=== PATIENT | female | born 1990 | race Caucasian/White ===

== ENCOUNTER 2017-02-15 07:15 | Inpatient (IN) | payer BC ==
[2017-02-15] MEDS ORDERED: Misoprostol 50 MCG (1/2 of 100 MCG) Tab VAG ONE (08:22)
[2017-02-15] MEDS ORDERED: Sodium Chloride 0.9% 10 ML Syringe FLUSH PRN ×2 (08:23→10:56)
[2017-02-15] MEDS ORDERED: Acetaminophen 325 MG Tab PO PRN ×2 (08:23→10:47)
[2017-02-15] MEDS ORDERED: Misoprostol 400 MCG (4 X 100 MCG TAB) RECTAL PRN ×2 (08:28→10:49)
[2017-02-15] MEDS ORDERED: Ondansetron 4 MG/2 ML SDV IV PRN ×2 (08:28→10:55)
[2017-02-15] MEDS ORDERED: Methylergonovine 0.2 MG/1 ML Amp IM PRN ×2 (08:28→10:49)
[2017-02-15] MEDS ORDERED: Nalbuphine 20 MG/1 ML Amp IM PRN ×2 (08:28→10:54)
[2017-02-15] MEDS ORDERED: Lidocaine 1% 30 ML SDV INJECT PRN ×2 (08:28→10:49)
[2017-02-15] MEDS ORDERED: Carboprost Tromethamine 250 MCG/1 ML Amp IM PRN ×2 (08:28→10:47)
[2017-02-15] MEDS ORDERED: Lactated Ringers 1,000 ML IV SCH ×2 (08:30)
[2017-02-15] MEDS ORDERED: Oxytocin/Normal Saline 30 UNIT/500 ML BAG IV SCH (08:30)
--- NOTE | 2017-02-15 09:34 | US ---
Clinical history: 26-year-old gravid female uncertain presentation. Interpretation: Enlarged uterus with "active" live ( heart rate 149 bpm) intrauterine gestation in a longitudina l lie and.... cephalic presentation i.e. vertex (head is presenting).
[2017-02-15] MEDS: Misoprostol 25 MCG (1/4 of 100 MCG) Tab VAG PRN ×2 (10:57→15:16)
[2017-02-15] MEDS ORDERED: Misoprostol 25 MCG (1/4 of 100 MCG) Tab VAG PRN (13:00)
[2017-02-15] MEDS ORDERED: hydrOXYzine HCl 25 MG Tab PO PRN (13:24)
[2017-02-15] MEDS ORDERED: CAFFEINE PO PRN (13:25)
[2017-02-15] MEDS ORDERED: [UNRECOGNIZED DRUG - OTHER] PO PRN (13:25)
[2017-02-15] MEDS ORDERED: ACETAMINOPHEN PO PRN (13:25)
[2017-02-15] MEDS: Lactated Ringers 1,000 ML IV SCH ×2 (14:45→18:42)
[2017-02-15] MEDS ORDERED: hydrOXYzine HCl 25 MG Tab PO ONE (21:18)
[2017-02-15] MEDS: Oxytocin/Normal Saline 30 UNIT/500 ML BAG IV SCH (22:28)
[2017-02-16] MEDS: Lactated Ringers 1,000 ML IV SCH ×4 (04:04→15:30)
--- NOTE | 2017-02-16 11:01 | PN ---
DATE: 02/16/2017 SUBJECTIVE: Hospital day #2, undergoing induction of labor for intrahepatic cholestasis of . Initiated with 2 doses of Cytotec and then contractions were too frequent to continue with Cytotec, so she was switched over to Pitocin and has had that running throughout the night. Reports that she is feeling the contractions that are getting stronger, but she is still tolerating very well. movement has been good. She has not developed any other new signs, symptoms, or problems. OBJECTIVE: General: Patient appears comfortable. She has just finished her breakfast. Vital Signs: Temperature is 98.0, pulse is 79, blood pressure 111/65. Heart: Regular without any obvious murmur. Lungs: Clear bilaterally. Genitourinary: Cervix is a good 3 cm dilated, 75% effaced, remains posterior and baby is ballotable with bag of water intact. Extremities: No edema, erythema, or tenderness noted. ASSESSMENT: 1. 2, para 1-0-0-1, currently at 37 and 1/7 weeks' gestation with intrahepatic cholestasis of . 2. Induction of labor, making slow but overall steady progress. PLAN: At this time, continue with the Pitocin to hopefully get that head well affixed against the cervix before artificial rupture of membranes can be performed. Hoping that after that, labor will progress more rapidly and I can attend to her delivery. However, patient understands I will likely need to transfer her care over to Dr. Robbins after 500 pm today. Her questions have been answered at this time. [facility] /[id number] ABDIEL
--- NOTE | 2017-02-16 14:07 | PN ---
DATE: 02/16/2017 SUBJECTIVE: Hospital day #2, inducing for intrahepatic cholestasis of . Baby movement has been good. Mother denies any specific complaints. Reporting she continues to feel contractions that they were same as they were this morning, and denies any new pelvic pressure. She has not had any vaginal bleeding and not developed any symptoms of preeclampsia. Reports with her last delivery, she came in and was not really having any thing going on, but when accidental or non-intended artificial rupture membranes was performed, she only had 6 hours of labor and then had a successful vaginal delivery, so she is anticipating that AROM will help this time as well. OBJECTIVE: Vital Signs: Have remained stable, and she is afebrile. Cervical exam: 3+ cm dilated, 80% effaced, softer consistency than on my last exam. Bag of water present and intact, ruptured with Amniohook and good return of clear fluid in copious amounts. Verified that the head came down and stayed applied to the cervix before and after procedure was performed. ASSESSMENT: 1. A 37 and 1/7 weeks 2, para 1-0-0-1, being induced for ICP. 2. Anemia of . 3. Status post artificial rupture of membranes. PLAN: Anticipate continued active labor management with vaginal delivery. Dr. Robbins is aware that the patient is here, and I will continue to watch her for the next 4 hours, and then he will take over at that time. [facility] /[id number]
[2017-02-16] MEDS ORDERED: fentaNYL 100 MCG/2 ML SDV ONE (15:10)
--- NOTE | 2017-02-16 15:34 | PCM.SN ---
- Free Text/Narrative Note: Intrathecal. Sitting position, sterile prep and drape. 1 % lidocaine w bicarb for skinwheal to L2 L3 interspace. Introducer, 24 Ga pencan x 1. Pos CSF, neg Heme, neg parasthesia. 1:1000 epi wash, 15 mcg PF sufenta, 35 mcg PF fentanyl, 0.4 ml PF NS, 6 mg of 0.75% PF bupivacaine injected after CSF aspiration. Pt to L lateral side. Procedure time 1515 to 1540
[2017-02-16] MEDS ORDERED: Benzocaine/Menthol 20%-0.5% Spray 56 GM Canister TOP PRN (17:25)
[2017-02-16] MEDS ORDERED: Simethicone 80 MG Tab.Chew PO PRN (17:25)
[2017-02-16] MEDS ORDERED: Mineral Oil/Petrolatum/Phenylephrine/Shark Liver Oil Oint 57 GM Tube RECTAL PRN (17:29)
[2017-02-16] MEDS ORDERED: Hydrocortisone 1% Crm 30 GM Tube TOP PRN (17:46)
[2017-02-16] MEDS: Oxytocin/Normal Saline 30 UNIT/500 ML BAG IV SCH (18:25)
[2017-02-16] MEDS: Docusate Sodium 100 MG Cap PO PRN (20:36)
[2017-02-16] MEDS: Ibuprofen 800 MG Tab PO PRN (20:36)
[2017-02-17] MEDS: Docusate Sodium 100 MG Cap PO PRN (07:47)
[2017-02-17] MEDS: Ferrous Sulfate 325 MG Tab PO SCH (07:48)
[2017-02-17] MEDS: Ibuprofen 800 MG Tab PO PRN ×2 (07:48→18:24)
--- NOTE | 2017-02-17 09:45 | PCM.PNPP ---
- General Info Date of Service: 02/17/17 (PPD # 1 S/P ) Functional Status: Reports: Pain Controlled, Tolerating Diet, Ambulating, Urinating - Review of Systems General: Reports: No Symptoms HEENT: Reports: No Symptoms Pulmonary: Reports: No Symptoms Cardiovascular: Reports: No Symptoms Gastrointestinal: Reports: No Symptoms Genitourinary: Reports: No Symptoms Musculoskeletal: Reports: No Symptoms Skin: Reports: No Symptoms Neurological: Reports: No Symptoms Psychiatric: Reports: No Symptoms - General Info Date of Service: 02/17/17 (PPD # 1 S/P ) - Patient Data Vital Signs - Most Recent: Last Vital Signs Temp 98.4 F 02/16/17 21:03 Pulse 99 02/16/17 21:03 Resp 16 02/16/17 21:03 BP 120/62 02/16/17 21:03 Pulse Ox 100 02/16/17 21:03 Weight - Most Recent: 173 lb I&O - Last 24 Hours: Intake & Output 02/16/17 02/17/17 02/17/17 22:59 06:59 14:59 Intake Total 2235 Output Total 1000 Balance 1235 Lab Results - Last 24 Hours: Laboratory Results - last 24 hr 02/17/17 Range/Units 06:25 WBC 16.0 H (5.0-10.0) 10^3/uL RBC 3.86 L (4.2-5.4) 10^6/uL Hgb 10.5 L (12.0-16.0) g/dL Hct 32.2 L (37.0-47.0) % MCV 83.4 (80-100) fL MCH 27.2 (27.0-34.0) pg MCHC 32.6 L (33.0-35.0) g/dL Plt Count 240 (150-450) 10^3/uL Med Orders - Current: Current Medications Acetaminophen (Tylenol) 650 mg PO Q4H PRN PRN Reason: Pain/Fever Benzocaine/Menthol (Dermoplast Pain Relief [place]) 0 gm TOP Q4H PRN PRN Reason: Perineal comfort measures Last Admin: 02/17/17 07:51 Dose: 1 spray Docusate Sodium (Colace) 100 mg PO BID PRN PRN Reason: Constipation Last Admin: 02/17/17 07:47 Dose: 100 mg Ferrous Sulfate (Ferrous Sulfate) 325 mg PO WITHBREAKFAST SHYANN Last Admin: 02/17/17 07:48 Dose: 325 mg Hydrocortisone (Hydrocortisone 1% Crm) 0 gm TOP ASDIRECTED PRN PRN Reason: Hemorrhoids Hydroxyzine HCl (Atarax) 25 mg PO Q6H PRN PRN Reason: Itching Oxytocin/Sodium Chloride (Pitocin In Ns 30 Unit/500 Ml) 30 unit in 500 mls @ 2 mls/hr IV TITRATE SHYANN; 2 MUNITS/MIN PRN Reason: Protocol Last Titration: 02/16/17 20:45 Dose: 0 munits/min, 0 mls/hr Ibuprofen (Motrin) 800 mg PO Q8H PRN PRN Reason: Mild Pain or Fever Last Admin: 02/17/17 07:48 Dose: 800 mg Prenat Multivit/[place]/Iron/Folic Ac ( Plus Iron) 1 each PO DAILY SHYANN Simethicone (Simethicone) 80 mg PO Q4H PRN PRN Reason: Gas Discontinued Medications Acetaminophen (Tylenol) 650 mg PO Q4H PRN PRN Reason: Pain/Fever Carboprost Tromethamine (Hemabate Ds) 250 mcg IM ASDIRECTED PRN PRN Reason: HEMORRHAGE Carboprost Tromethamine (Hemabate Ds) 250 mcg IM ASDIRECTED PRN PRN Reason: HEMORRHAGE Fentanyl (Sublimaze) Confirm Administered Dose 100 mcg .ROUTE .STK-MED ONE Stop: 02/16/17 15:11 Last Admin: 02/16/17 19:54 Dose: Not Given Hydroxyzine HCl (Atarax) 50 mg PO BEDTIME ONE Stop: 02/15/17 21:19 Last Admin: 02/15/17 22:29 Dose: 50 mg Lactated Ringer's (Ringers, Lactated) 1,000 mls @ 999 mls/hr IV ASDIRECTED SHYANN Oxytocin/Sodium Chloride (Pitocin In Ns 30 Unit/500 Ml) 30 unit in 500 mls @ 2 mls/hr IV TITRATE SHYANN; 2 MUNITS/MIN PRN Reason: Protocol Lactated Ringer's (Ringers, Lactated) 1,000 mls @ 125 mls/hr IV ASDIRECTED SHYANN Lactated Ringer's (Ringers, Lactated) 1,000 mls @ 999 mls/hr IV ASDIRECTED SHYANN Last Admin: 02/16/17 15:30 Dose: 125 mls/hr Lidocaine HCl (Xylocaine-Mpf 1%) 10 ml INJECT ASDIRECTED PRN PRN Reason: Perineal Repair Lidocaine HCl (Xylocaine-Mpf 1%) 10 ml INJECT ASDIRECTED PRN PRN Reason: Perineal Repair Methylergonovine Maleate (Methergine) 0.2 mg IM ASDIRECTED PRN PRN Reason: Hemorrhage Methylergonovine Maleate (Methergine) 0.2 mg IM ASDIRECTED PRN PRN Reason: Hemorrhage Misoprostol (Cytotec) 25 mcg VAG ONETIME ONE Stop: 02/15/17 08:23 Last Admin: 02/15/17 12:12 Dose: Not Given Misoprostol (Cytotec) 25 mcg VAG Q4H PRN PRN Reason: cervical ripening Misoprostol (Cytotec) 800 mcg RECTAL ASDIRECTED PRN PRN Reason: Hemorrhage Misoprostol (Cytotec) 800 mcg RECTAL ASDIRECTED PRN PRN Reason: Hemorrhage Misoprostol (Cytotec) 25 mcg VAG Q4H PRN PRN Reason: cervical ripening Last Admin: 02/15/17 15:16 Dose: 25 mcg Nalbuphine HCl (Nubain) 10 mg IM Q3H PRN PRN Reason: Pain (moderate 4-6) Nalbuphine HCl (Nubain) 10 mg IM Q3H PRN PRN Reason: Pain (moderate 4-6) Excedrin Tension Headache (Apap/Caffeine) 500mg/65mg Own Med 2 caplet PO BID PRN PRN Reason: headache Last Admin: 02/15/17 13:30 Dose: 2 caplet Ondansetron HCl (Zofran) 4 mg IV Q4H PRN PRN Reason: Nausea/Vomiting Ondansetron HCl (Zofran) 4 mg IV Q4H PRN PRN Reason: Nausea/Vomiting Last Admin: 02/16/17 15:07 Dose: 4 mg Phenyleph/Shark Oil/Min Oil/Petrol (Preparation H Oint) 0 gm RECTAL ASDIRECTED PRN PRN Reason: Pain Sodium Bicarbonate (Sodium Bicarbonate 4.2%) Confirm Administered Dose 5 meq .ROUTE .STK-MED ONE Stop: 02/16/17 15:12 Last Admin: 02/16/17 19:54 Dose: Not Given Sodium Chloride (Saline Flush) 10 ml FLUSH ASDIRECTED PRN PRN Reason: Keep Vein Open Sodium Chloride (Saline Flush) 10 ml FLUSH ASDIRECTED PRN PRN Reason: Keep Vein Open Sufentanil Citrate (Sufenta) Confirm Administered Dose 50 mcg .ROUTE .STK-MED ONE Stop: 02/16/17 15:12 Last Admin: 02/16/17 19:54 Dose: Not Given - Interaction Infant Disposition, : [place] in Room with Family Interaction: Holding Infant Feeding: Bottle Fed Support Person: Significant Other - Recovery Exam Fundal Tone: Firm Fundal Level: At Umbilicus Fundal Placement: Midline Lochia Amount: Small Lochia Color: Rubra/Red Perineum Description: Intact, Minimal Bruising/Swelling, Hemorrhoids Episiotomy/Laceration: None Bladder Status: Voiding - Exam General: Alert, Oriented, Cooperative HEENT: Pupils Equal, Pupils Reactive, Mucous Membr. Moist/[place] Neck: Supple Lungs: Clear to Auscultation, Normal Respiratory Effort Cardiovascular: Regular Rate, Regular Rhythm GI/Abdominal Exam: Normal Bowel Sounds, Soft, Non-Tender, No Distention Extremities: Normal Inspection, Normal Range of Motion, Non-Tender, No Pedal Edema Skin: Warm, Dry, Intact Neurological: No New Focal Deficit, Normal Gait, Normal Speech Psy/Mental Status: Alert, Normal Affect, Normal Mood - Problem List Review Problem List Initiated/Reviewed/Updated: Yes - Assessment Assessment:: PPD # 1 S/P Doing well - Plan Plan:: Continue present care Discharge planning for tomorrrow
[2017-02-17] MEDS: Prenatal Multivitamin with Calcium/Folic Acid/Iron Tab PO SCH (12:22)
--- NOTE | 2017-02-17 16:38 | DEL ---
DATE: 02/16/2017 PREPROCEDURE DIAGNOSES: 1. A 37 and 1/7 weeks intrauterine . 2. Intrahepatic cholestasis of . 3. 2, para 1-0-0-1 by last menstrual period. 4. History of depression and anxiety. 5. Anemia of . POSTPROCEDURE DIAGNOSES: 1. A 37 and 1/7 weeks intrauterine . 2. Intrahepatic cholestasis of . 3. 2, now para 2-0-0-2 by last menstrual period. 4. History of depression and anxiety. 5. Anemia of . 6. Status post spontaneous vaginal delivery without complications. 7. Delivery of viable male . BRIEF HISTORY: The patient is a 26-year-old with the above-listed diagnoses, who was admitted to the hospital on the day prior to delivery for induction of labor because of the intrahepatic cholestasis of . Ultrasound performed to confirm vertex presenting as previously it had been posterior cervical spine. Once that was secured, she had 2 doses of Cytotec for cervical ripening and then was switched over to Pitocin which was continued throughout the night, and Vistaril last night for sleep. Artificial rupture of membranes was assessed this morning and not possible because the head being ballotable. Rupture was then performed at around noon and after approximately 4 hours of active labor, the patient was complete and ready to deliver with details as below. She did have an intrathecal for pain control. PROCEDURE IN DETAIL: With the patient in dorsal lithotomy position, she delivered a viable male infant over intact perineum. After the delivery of the head, a loose nuchal cord was noted. However, baby was coming to rapidly to reduce it, therefore, baby delivered via somersault maneuver and was being dried and stimulated and mouth was suctioned. was then placed up on mother's abdomen. Three-vessel umbilical cord was doubly clamped and cut after a delay. The cord blood sample was then obtained and placenta delivered by gentle cord traction and concomitant uterine massage, inspected and intact, found to have a battledore insertion. Labia and vagina were inspected and there were no lacerations, only some very superficial tears posteriorly. ESTIMATED BLOOD LOSS: 300 mL. FINDINGS: 1. Viable male infant, scores of 9 and 9. weight 3090 g, 6 pounds, 13 ounces. 2. Battledore cord insertion of placenta. 3. Nuchal cord x1. COMPLICATIONS: None. DISPOSITION: Mother and baby to stay in the room at this time for recovery and anticipate she will be doing skin to skin before he goes to the nursery. [facility] /[id number] MTDD
--- NOTE | 2017-02-18 04:17 | PCM.PNPP ---
- General Info Date of Service: 02/18/17 (PPD # 2 S/P ) Functional Status: Reports: Pain Controlled, Tolerating Diet, Ambulating, Urinating - Review of Systems General: Reports: No Symptoms HEENT: Reports: No Symptoms Pulmonary: Reports: No Symptoms Cardiovascular: Reports: No Symptoms Gastrointestinal: Reports: No Symptoms Genitourinary: Reports: No Symptoms Musculoskeletal: Reports: No Symptoms Skin: Reports: No Symptoms Neurological: Reports: No Symptoms Psychiatric: Reports: No Symptoms - General Info Date of Service: 02/18/17 (PPD # 2 S/P ) - Patient Data Vital Signs - Most Recent: Last Vital Signs Temp 98.4 F 02/17/17 20:00 Pulse 86 02/17/17 20:00 Resp 16 02/17/17 20:00 BP 130/82 02/17/17 20:00 Pulse Ox 100 02/17/17 20:00 Weight - Most Recent: 173 lb Lab Results - Last 24 Hours: Laboratory Results - last 24 hr 02/17/17 Range/Units 06:25 WBC 16.0 H (5.0-10.0) 10^3/uL RBC 3.86 L (4.2-5.4) 10^6/uL Hgb 10.5 L (12.0-16.0) g/dL Hct 32.2 L (37.0-47.0) % MCV 83.4 (80-100) fL MCH 27.2 (27.0-34.0) pg MCHC 32.6 L (33.0-35.0) g/dL Plt Count 240 (150-450) 10^3/uL Med Orders - Current: Current Medications Acetaminophen (Tylenol) 650 mg PO Q4H PRN PRN Reason: Pain/Fever Benzocaine/Menthol (Dermoplast Pain Relief [place]) 0 gm TOP Q4H PRN PRN Reason: Perineal comfort measures Last Admin: 02/17/17 07:51 Dose: 1 spray Docusate Sodium (Colace) 100 mg PO BID PRN PRN Reason: Constipation Last Admin: 02/17/17 07:47 Dose: 100 mg Ferrous Sulfate (Ferrous Sulfate) 325 mg PO WITHBREAKFAST SHYANN Last Admin: 02/17/17 07:48 Dose: 325 mg Hydrocortisone (Hydrocortisone 1% Crm) 0 gm TOP ASDIRECTED PRN PRN Reason: Hemorrhoids Last Admin: 02/17/17 12:22 Dose: 30 gm Hydroxyzine HCl (Atarax) 25 mg PO Q6H PRN PRN Reason: Itching Oxytocin/Sodium Chloride (Pitocin In Ns 30 Unit/500 Ml) 30 unit in 500 mls @ 2 mls/hr IV TITRATE SHYANN; 2 MUNITS/MIN PRN Reason: Protocol Last Titration: 02/16/17 20:45 Dose: 0 munits/min, 0 mls/hr Ibuprofen (Motrin) 800 mg PO Q8H PRN PRN Reason: Mild Pain or Fever Last Admin: 02/17/17 18:24 Dose: 800 mg Prenat Multivit/[place]/Iron/Folic Ac ( Plus Iron) 1 each PO DAILY SHYANN Last Admin: 02/17/17 12:22 Dose: 1 each Simethicone (Simethicone) 80 mg PO Q4H PRN PRN Reason: Gas Discontinued Medications Acetaminophen (Tylenol) 650 mg PO Q4H PRN PRN Reason: Pain/Fever Carboprost Tromethamine (Hemabate Ds) 250 mcg IM ASDIRECTED PRN PRN Reason: HEMORRHAGE Carboprost Tromethamine (Hemabate Ds) 250 mcg IM ASDIRECTED PRN PRN Reason: HEMORRHAGE Fentanyl (Sublimaze) Confirm Administered Dose 100 mcg .ROUTE .K-MED ONE Stop: 02/16/17 15:11 Last Admin: 02/16/17 19:54 Dose: Not Given Hydroxyzine HCl (Atarax) 50 mg PO BEDTIME ONE Stop: 02/15/17 21:19 Last Admin: 02/15/17 22:29 Dose: 50 mg Lactated Ringer's (Ringers, Lactated) 1,000 mls @ 999 mls/hr IV ASDIRECTED SHYANN Oxytocin/Sodium Chloride (Pitocin In Ns 30 Unit/500 Ml) 30 unit in 500 mls @ 2 mls/hr IV TITRATE SHYANN; 2 MUNITS/MIN PRN Reason: Protocol Lactated Ringer's (Ringers, Lactated) 1,000 mls @ 125 mls/hr IV ASDIRECTED SHYANN Lactated Ringer's (Ringers, Lactated) 1,000 mls @ 999 mls/hr IV ASDIRECTED SHYANN Last Admin: 02/16/17 15:30 Dose: 125 mls/hr Lidocaine HCl (Xylocaine-Mpf 1%) 10 ml INJECT ASDIRECTED PRN PRN Reason: Perineal Repair Lidocaine HCl (Xylocaine-Mpf 1%) 10 ml INJECT ASDIRECTED PRN PRN Reason: Perineal Repair Methylergonovine Maleate (Methergine) 0.2 mg IM ASDIRECTED PRN PRN Reason: Hemorrhage Methylergonovine Maleate (Methergine) 0.2 mg IM ASDIRECTED PRN PRN Reason: Hemorrhage Misoprostol (Cytotec) 25 mcg VAG ONETIME ONE Stop: 02/15/17 08:23 Last Admin: 02/15/17 12:12 Dose: Not Given Misoprostol (Cytotec) 25 mcg VAG Q4H PRN PRN Reason: cervical ripening Misoprostol (Cytotec) 800 mcg RECTAL ASDIRECTED PRN PRN Reason: Hemorrhage Misoprostol (Cytotec) 800 mcg RECTAL ASDIRECTED PRN PRN Reason: Hemorrhage Misoprostol (Cytotec) 25 mcg VAG Q4H PRN PRN Reason: cervical ripening Last Admin: 02/15/17 15:16 Dose: 25 mcg Nalbuphine HCl (Nubain) 10 mg IM Q3H PRN PRN Reason: Pain (moderate 4-6) Nalbuphine HCl (Nubain) 10 mg IM Q3H PRN PRN Reason: Pain (moderate 4-6) Excedrin Tension Headache (Apap/Caffeine) 500mg/65mg Own Med 2 caplet PO BID PRN PRN Reason: headache Last Admin: 02/15/17 13:30 Dose: 2 caplet Ondansetron HCl (Zofran) 4 mg IV Q4H PRN PRN Reason: Nausea/Vomiting Ondansetron HCl (Zofran) 4 mg IV Q4H PRN PRN Reason: Nausea/Vomiting Last Admin: 02/16/17 15:07 Dose: 4 mg Phenyleph/Shark Oil/Min Oil/Petrol (Preparation H Oint) 0 gm RECTAL ASDIRECTED PRN PRN Reason: Pain Sodium Bicarbonate (Sodium Bicarbonate 4.2%) Confirm Administered Dose 5 meq .ROUTE .STK-MED ONE Stop: 02/16/17 15:12 Last Admin: 02/16/17 19:54 Dose: Not Given Sodium Chloride (Saline Flush) 10 ml FLUSH ASDIRECTED PRN PRN Reason: Keep Vein Open Sodium Chloride (Saline Flush) 10 ml FLUSH ASDIRECTED PRN PRN Reason: Keep Vein Open Sufentanil Citrate (Sufenta) Confirm Administered Dose 50 mcg .ROUTE .STK-MED ONE Stop: 02/16/17 15:12 Last Admin: 02/16/17 19:54 Dose: Not Given - Infant Interaction Disposition, : in Room with Family Interaction: Holding Infant Infant Feeding: Bottle Fed Support Person: Significant Other - Recovery Exam Fundal Tone: Firm Fundal Level: 2 Fingerbreadths Below Umbilicus Fundal Placement: Midline Lochia Amount: Small Lochia Color: Rubra/Red Perineum Description: Intact, Minimal Bruising/Swelling, Hemorrhoids Episiotomy/Laceration: None Bladder Status: Voiding - Exam General: Alert, Oriented, Cooperative, No Acute Distress HEENT: Pupils Equal, Pupils Reactive, Mucous Membr. Moist/[place] Neck: Supple Lungs: Clear to Auscultation, Normal Respiratory Effort Cardiovascular: Regular Rate, Regular Rhythm, No Murmurs GI/Abdominal Exam: Normal Bowel Sounds, Soft, Non-Tender, No Distention Extremities: Normal Inspection, Normal Range of Motion, Non-Tender, No Pedal Edema Skin: Warm, Dry, Intact Neurological: No New Focal Deficit, Normal Gait, Normal Speech, Normal Tone Psy/Mental Status: Alert, Normal Affect, Normal Mood - Problem List Review Problem List Initiated/Reviewed/Updated: Yes - Assessment Assessment:: PPD # 2 S/P Doing well - Plan Plan:: Discharge to home Follow-up with Dr. Vail next week then in 6 weeks Ibuprofen/Tylenol for pain as needed.
[2017-02-18] MEDS: Ferrous Sulfate 325 MG Tab PO SCH (08:01)
[2017-02-18] MEDS: Docusate Sodium 100 MG Cap PO PRN (08:01)
[2017-02-18] MEDS: Prenatal Multivitamin with Calcium/Folic Acid/Iron Tab PO SCH (08:02)
[2017-02-18] MEDS: Ibuprofen 800 MG Tab PO PRN (08:03)
[2017-02-18] MEDS ORDERED: fentaNYL 100 MCG/2 ML SDV ITHECAL ONE (11:19)
--- NOTE | 2017-02-19 00:38 | DISCH ---
INDICATION FOR ADMISSION: Ms. Gagnon is a 26-year-old 2, para 1-0-0-1 female who reported to Labor and Delivery at 37-1/7 weeks' gestation for induction of labor secondary to intrahepatic cholestasis of . She received Cytotec cervical ripening, and once she started ministerio regularly, Pitocin was started. She had artificial rupture of membranes occurred with clear fluid noted. She tolerated her labor quite well. Once she got uncomfortable, intrathecal anesthesia was obtained. She tolerated the rest of the labor quite well. Once she got to complete, she started pushing. She had a normal spontaneous vaginal delivery of a viable male infant, weighing 6 pounds 13 ounces with scores of 9 at 1 minute and 9 at 5 minutes over an intact perineum. There was a loose nuchal cord x1. Also noted was a battledore insertion of the cord into the placenta. The patient recovered for 2 hours. The went to the nursery. No complications occurred throughout her hospital stay. She is afebrile. Vital signs are stable. She tolerated her diet well and ambulated quite well. She was discharged to home on day #2. LABORATORY AND DIAGNOSTIC STUDIES: 02/15/2017, WBC 11.6, hemoglobin 10.8, hematocrit 33.1, platelet count 192,000. 02/17/2017, WBC 16.0, hemoglobin 10.5, hematocrit 32.2, platelet count 240,000. DISCHARGE INSTRUCTIONS: 1. Discharge to home. 2. Follow up with Dr. Bryan Georges next week. 3. Follow up at 6-week checkup. 4. No douching, tampons, intercourse for 6 weeks. 5. Discharge instructions including activity, followup, medications, diet, and wound care were discussed with the patient. She understands these and is willing to comply with these. 6. Ibuprofen 800 mg one tablet every 6 to 8 hours p.r.n. for pain. DISCHARGE DIAGNOSES: 1. A 37-1/7 weeks' intrauterine . 2. Intrahepatic cholestasis of . 3. Cytotec cervical ripening. 4. Pitocin induction. 5. Artificial rupture of membranes. 6. History of depression and anxiety. 7. Anemia secondary to , chronic. 8. Normal spontaneous vaginal delivery of a viable male , weighing 6 pounds 13 ounces with scores of 9 at 1 minute and 9 at 5 minute. 9. Loose nuchal cord x1. 10.Battledore insertion of cord into placenta. 11.Intrathecal anesthesia. [facility] /[id number]
--- NOTE | 2017-02-20 21:38 | HP ---
Please see scanned history and physical that was sent over from the clinic prior to admission, no updates or changes are needed at this time. [facility] /[id number] MTDD
== END 2017-02-18 11:20 | disposition home or self-care (01) | DRG 560 ==
LOC: DL.US 07:15 → DL.OB 08:28 → UNDOADMOB 08:28 → OBSVTOIN 17:09 → INTOOBSV 17:09 → DL.OB 02-16 17:09 → OBSVTOIN 02-16 17:09 → UNDODISIN 02-18 11:20
PROVIDERS: ADMIT Family Medicine; ATTEND Family Medicine
PROC: 3E0P7VZ Introduction of Hormone into Female Reproductive, Via Natural or Artificial Opening (ICD-10-PCS; 2017-02-15)
PROC: 3E0P3VZ Introduction of Hormone into Female Reproductive, Percutaneous Approach (ICD-10-PCS; 2017-02-15)
PROC: 10E0XZZ Delivery of Products of Conception, External Approach (ICD-10-PCS; principal; 2017-02-16)
PROC: 10907ZC Drainage of Amniotic Fluid, Therapeutic from Products of Conception, Via Natural or Artificial Opening (ICD-10-PCS; 2017-02-16)
PROC: 00HU33Z Insertion of Infusion Device into Spinal Canal, Percutaneous Approach (ICD-10-PCS; 2017-02-16)
PROC: 3E0R3BZ Introduction of Anesthetic Agent into Spinal Canal, Percutaneous Approach (ICD-10-PCS; 2017-02-16)
DX: O26.62 Liver and biliary tract disorders in childbirth (principal); K83.1 Obstruction of bile duct; Z3A.37 37 weeks gestation of pregnancy; Z37.0 Single live birth; O69.81X0 Labor and delivery complicated by cord around neck, without compression, not applicable or unspecified; O99.02 Anemia complicating childbirth; D64.9 Anemia, unspecified; O43.193 Other malformation of placenta, third trimester
CPT/HCPCS: 36415; 59409; 76815; 85027; A9270-GY; J2405; J2590; J3010; J7120

== ENCOUNTER 2023-02-28 19:41 | Emergency (ER) | payer MEDICAID ==
[2023-02-28 20:13] LABS: BASOPHILS PERCENT AUTO 0.2 % (0.0-1.0); EOSINOPHILS PERCENT AUTO 0.7 % (1.0-3.0); HEMATOCRIT 45.8 % (37.0-47.0); HEMOGLOBIN 15.4 g/dL (12.0-16.0); LYMPHOCYTES PERCENT AUTO 21.5 % (20.5-50.1); MEAN CORPUSCULAR HEMOGLOBIN 30.1 pg (27.0-34.0); MEAN CORPUSCULAR HGB CONC 33.6 g/dL (33.0-35.0); MEAN CORPUSCULAR VOLUME 89.5 fL (80-100); MONOCYTES PERCENT AUTO 5.6 % (2-8); PLATELET COUNT,PLT 365 10^3/uL (150-450); RED BLOOD CELL COUNT 5.12 10^6/uL (4.2-5.4); WHITE BLOOD CELL COUNT,WBC 12.3 10^3/uL (5.0-10.0)
[2023-02-28 20:30] LABS: A/G RATIO 1.4; ALANINE AMINOTRANSFERASE,ALT 49 U/L (14-59); ALBUMIN 4.1 g/dL (3.4-5.0); ALKALINE PHOSPHATASE 137 U/L (46-116); ANION GAP 10.3 mEq/L (7-13); ASPARTATE AMNIOTRANSFERASE,AST 23 U/L (15-37); BLOOD UREA NITROGEN,BUN 9 mg/dL (7-18); BUN/CREATININE RATIO 12.5 (No establ ref range); CALCIUM 8.4 mg/dL (8.5-10.1); CARBON DIOXIDE,CO2 26 mmol/L (21-32); CHLORIDE,CL 103 mmol/L (98-107); CREATININE 0.72 mg/dL (0.55-1.02); EST CRCL DRUG DOSING (CG) 92.79 mL/min; GLUCOSE RANDOM 97 mg/dL (70-99); POTASSIUM,K 3.3 mmol/L (3.5-5.1); SODIUM,NA 136 mmol/L (136-145)
[2023-02-28 20:31] LABS: C-REACTIVE PROTEIN < 0.50 ng/dL (<=0.50); ESTIMATED GFR 114 mL/min (>=60)
[2023-02-28 20:33] LABS: LACTIC ACID 1.1 mmol/L (0.4-2.0)
[2023-02-28 20:42] LABS: APPEARANCE,URINE SLIGHTLY CLOUDY (CLEAR); BILIRUBIN,URINE NEGATIVE (NEGATIVE); COLOR,URINE YELLOW (YELLOW); GLUCOSE,URINE NEGATIVE (NEGATIVE); KETONES,URINE 40 (NEGATIVE); LEUKOCYTE ESTERASE,URINE SMALL (NEGATIVE); NITRITE,URINE NEGATIVE (NEGATIVE); OCCULT BLOOD,URINE LARGE (NEGATIVE); PROTEIN,URINE NEGATIVE (NEGATIVE); UROBILINOGEN,URINE 0.2 mg/dL (0.2-1.0)
[2023-02-28 20:49] LABS: BACTERIA,URINE MODERATE /HPF (0-FEW/HPF); EPITHELIAL CELLS,URINE MODERATE /HPF (NOT SEEN); MUCUS,URINE FEW /LPF (NOT SEEN); WBC,URINE 30-40 /HPF (0-5/HPF)
[2023-02-28] MEDS ORDERED: Iopamidol 612 MG/ML 100 ML Bottle IVPUSH ONE (20:53)
[2023-02-28 20:54] LABS: INFLUENZA A NAA NEGATIVE (NEGATIVE); INFLUENZA B NAA NEGATIVE (NEGATIVE)
[2023-02-28 21:09] LABS: CORONAVIRUS COVID-19 NAA POSITIVE (NEGATIVE)
[2023-02-28] MEDS ORDERED: Take Home: Ciprofloxacin HCl 500 MG, 6 Tab Pack PO ONE (22:00)
[2023-02-28] MEDS ORDERED: Metoclopramide 10 MG/2 ML SDV IVPUSH ONE (22:13)
[2023-02-28] MEDS ORDERED: Lactulose Soln 10 GM/15 ML 30 ML UD Cup PO ONE (22:45)
== END 2023-02-28 22:58 | disposition home or self-care (01) ==
LOC: DL.ED 19:41
DX: U07.1 COVID-19 (principal); K59.00 Constipation, unspecified; N30.01 Acute cystitis with hematuria; Z79.899 Other long term (current) drug therapy
CPT/HCPCS: 0240U; 36415; 74178; 80053; 81001; 81025; 83605; 83735; 85025; 86140; 87086; 87491; 87563; 87591; 96374; 99284; A9270; J2765; Q9967